=== PATIENT | male | born 1960 | race American Indian/Alaskan Native ===

== ENCOUNTER 2016-04-15 18:36 | Emergency (ER) | payer OTHER ==
[2016-04-15] MEDS ORDERED: CATAPRES ONE (18:58)
[2016-04-15] MEDS ORDERED: CATAPRES PO ONE (19:02)
[2016-04-15 19:51] VITALS: BP 173/118
--- NOTE | 2016-04-15 19:56 | Emergency Department Report ---
ED General Adult HPI - General Chief complaint: High BP Stated complaint: POSS HIGH BP Time Seen by Provider: 04/15/16 19:53 Source: patient Mode of arrival: Ambulatory Limitations: No Limitations - History of Present Illness Initial comments: Pt here for BP med refill. Unable to see PCP due to insurance issues. No complaints. -: Gradual, days(s) Radiation: non-radiation Severity scale (0 -10): 0 Consistency: constant Improves with: none Worsens with: none Associated Symptoms: denies other symptoms Treatments Prior to Arrival: none - Related Data Previous Rx's Medication Instructions Recorded Last Taken Type Bisoprolol/Hctz [Ziac 10-6.25] 1 each PO DAILY #30 tab 04/15/16 Unknown Rx Gemfibrozil [Lopid] 600 mg PO BID #60 tablet 04/15/16 Unknown Rx amLODIPine [Norvasc] 10 mg PO DAILY #30 tab 04/15/16 Unknown Rx glipiZIDE [Glucotrol] 10 mg PO BID #60 tab 04/15/16 Unknown Rx metFORMIN [Glucophage] 500 mg PO BID #60 tablet 04/15/16 Unknown Rx Allergies Allergy/AdvReac Type Severity Reaction Status Date / Time No Known Allergies Allergy Unverified 04/15/16 18:59 ED Review of Systems ROS: Stated complaint: POSS HIGH BP Other details as noted in HPI Comment: All other systems reviewed and negative Constitutional: denies: chills, fever Eyes: denies: eye pain, eye discharge, vision change ENT: denies: ear pain, throat pain Respiratory: denies: cough, shortness of breath, wheezing Cardiovascular: denies: chest pain, palpitations Endocrine: no symptoms reported Gastrointestinal: denies: abdominal pain, nausea, diarrhea Genitourinary: denies: urgency, dysuria Musculoskeletal: denies: back pain, joint swelling, arthralgia Skin: denies: rash, lesions Neurological: denies: headache, weakness, paresthesias Psychiatric: denies: anxiety, depression Hematological/Lymphatic: denies: easy bleeding, easy bruising ED Past Medical Hx - Past Medical History Hx Hypertension: Yes Hx Congestive Heart Failure: Yes Hx Diabetes: Yes - Surgical History Past Surgical History?: No - Social History Smoking Status: Former Smoker Substance Use Type: Alcohol - Medications Home Medications: Home Medications Medication Instructions Recorded Confirmed Last Taken Type Bisoprolol/Hctz [Ziac 10-6.25] 1 each PO DAILY #30 tab 04/15/16 Unknown Rx Gemfibrozil [Lopid] 600 mg PO BID #60 tablet 04/15/16 Unknown Rx amLODIPine [Norvasc] 10 mg PO DAILY #30 tab 04/15/16 Unknown Rx glipiZIDE [Glucotrol] 10 mg PO BID #60 tab 04/15/16 Unknown Rx metFORMIN [Glucophage] 500 mg PO BID #60 tablet 04/15/16 Unknown Rx ED Physical Exam - General Limitations: No Limitations General appearance: alert, in no apparent distress - Head Head exam: Present: atraumatic, normocephalic - Eye Eye exam: Present: normal appearance, PERRL, EOMI Pupils: Present: normal accommodation - ENT ENT exam: Present: mucous membranes moist - Neck Neck exam: Present: normal inspection - Respiratory Respiratory exam: Present: normal lung sounds bilaterally. Absent: respiratory distress - Cardiovascular Cardiovascular Exam: Present: regular rate, normal rhythm. Absent: systolic murmur, diastolic murmur, rubs, gallop - GI/Abdominal GI/Abdominal exam: Present: soft, normal bowel sounds - Rectal Rectal exam: Present: deferred - Extremities Exam Extremities exam: Present: normal inspection - Back Exam Back exam: Present: normal inspection - Neurological Exam Neurological exam: Present: alert, oriented X3, CN II-XII intact, reflexes normal. Absent: motor sensory deficit - Psychiatric Psychiatric exam: Present: normal affect, normal mood - Skin Skin exam: Present: warm, dry, intact, normal color. Absent: rash ED Course Vital Signs 04/15/16 04/15/16 04/15/16 18:48 19:03 19:49 Temperature 98.4 F 98.0 F Pulse Rate 97 H 98 H 100 H Respiratory 18 Rate Blood Pressure 191/122 198/123 Blood Pressure 173/118 [Right] O2 Sat by Pulse 97 97 Oximetry - Reevaluation(s) Reevaluation #1: 04/15/16 19:55 Trending down 167/115. Will recheck in 30 min. Reevaluation #2: 04/15/16 21:03 BP, GLC trending down. NAD, stable for d/c. ED Medical Decision Making - Medical Decision Making BP down. Glc trending down. Asymptomatic. Will refill until he can see PCP. - Differential Diagnosis htn urgency, med refill, hyperglycemia Critical care attestation.: If time is entered above; I have spent that time in minutes in the direct care of this critically ill patient, excluding procedure time. ED Disposition Clinical Impression: Hypertensive urgency Hyperglycemia due to type 2 diabetes mellitus Qualifiers: Diabetes mellitus nursing home insulin use: unspecified intermediate manager insulin use status Qualified Code(s): E11.65 - Type 2 diabetes mellitus with hyperglycemia Disposition: DISCHARGED TO HOME OR SELFCARE Is pt being admited?: No Condition: Stable Instructions: Diabetes Mellitus Type 2 in Adults (ED), Hypertension (ED) Prescriptions: amLODIPine [Norvasc] 10 mg PO DAILY #30 tab Bisoprolol/Hctz [Ziac 10-6.25] 1 each PO DAILY #30 tab Gemfibrozil [Lopid] 600 mg PO BID #60 tablet glipiZIDE [Glucotrol] 10 mg PO BID #60 tab metFORMIN [Glucophage] 500 mg PO BID #60 tablet Referrals: PRIMARY CAREMD [Primary Care Provider] - 3-5 Days CHRISTINE FERNANDEZ MD [Staff Physician] - 3-5 Days Time of Disposition: 21:04
== END 2016-04-15 21:33 | disposition home or self-care (01) ==
LOC: ED 18:36
DX: I10 Essential (primary) hypertension (principal); E11.65 Type 2 diabetes mellitus with hyperglycemia; I50.9 Heart failure, unspecified; Z87.891 Personal history of nicotine dependence
CPT/HCPCS: 82962; 96372; 99283; J1815

== ENCOUNTER 2017-11-12 15:53 | Emergency (ER) | payer OTHER ==
--- NOTE | 2017-11-12 20:11 | XRay Report ---
FINAL REPORT PROCEDURE: XR KNEE 3V RT TECHNIQUE: RIGHT knee radiographs, AP, lateral and sunrise views. CPT 16404 HISTORY: pain, edema COMPARISON: No prior studies are available for comparison. FINDINGS: Fracture (s) and/or Dislocation(s): None . Alignment: Normal . Joint space(s): Normal . Soft tissues: There is prepatellar soft tissue swelling. There are vascular calcifications.. Bone mineralization: Normal . Foreign bodies: None . IMPRESSION: There is no acute bony abnormality. There is no joint effusion. There is mild prepatellar soft tissue swelling..
[2017-11-12] MEDS ORDERED: MOTRIN PO ONE (22:47)
--- NOTE | 2017-11-13 00:01 | Emergency Department Report ---
Upper Extremity - [facility] Chief Complaint: Extremity Problem,Nontraumatic Stated Complaint: RT KNEE PAIN ED Review of Systems ROS: Stated complaint: RT KNEE PAIN Other details as noted in HPI ED Past Medical Hx - Past Medical History Hx Hypertension: Yes Hx Congestive Heart Failure: Yes Hx Diabetes: Yes - Surgical History Past Surgical History?: No - Social History Smoking Status: Never Smoker Substance Use Type: None - Medications Home Medications: Home Medications Medication Instructions Recorded Confirmed Last Taken Type Bisoprolol/Hctz [Ziac 10-6.25] 1 each PO DAILY #30 tab 04/15/16 Unknown Rx Gemfibrozil [Lopid] 600 mg PO BID #60 tablet 04/15/16 Unknown Rx amLODIPine [Norvasc] 10 mg PO DAILY #30 tab 04/15/16 Unknown Rx glipiZIDE [Glucotrol] 10 mg PO BID #60 tab 04/15/16 Unknown Rx metFORMIN [Glucophage] 500 mg PO BID #60 tablet 04/15/16 Unknown Rx Upper Extremity Exam - Exam General: Vital signs noted. No distress. Alert and acting appropriately. ED Course Vital Signs 11/12/17 16:06 Temperature 98.6 F Pulse Rate 107 H Respiratory 16 Rate Blood Pressure 166/97 O2 Sat by Pulse 95 Oximetry Critical care attestation.: If time is entered above; I have spent that time in minutes in the direct care of this critically ill patient, excluding procedure time. ED Disposition Condition: Stable Referrals: PRIMARY CARE, [Primary Care Provider] - 3-5 Days
--- NOTE | 2017-11-13 00:02 | Emergency Department Report ---
ED Lower Extremity HPI - General Chief Complaint: Extremity Problem,Nontraumatic Stated Complaint: RT KNEE PAIN Source: patient Mode of arrival: Ambulatory Limitations: No Limitations - History of Present Illness Initial Comments: 57-year-old -[place] male with a past medical history of hypertension and diabetes comes in complaining of pain to the right knee. Patient denies any trauma. 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 Patient presents to the triage and fast track using a walker that he had borrowed from his [id number]. Patient reports that he took Tylenol which has not helped with this pain. Patient reports that the Motrin 600 mg given from triage has helped some. Patient has recently received insurance yet has not followed up with a primary care provider. It was noted that his blood pressure in triage is 166/97. With the repeat of 189/109. She denies any known drug allergies. Reports is been taking his amlodipine that saw he's had. Injury: Knee: Right Type of Injury: unknown Severity: severe Severity scale (0 -10): 8 Improves With: NSAID Worsens With: weight bearing, movement, palpation Associated Symptoms: able to partially bear weight Treatments Prior to Arrival: cold therapy, other (acetaminophen) - Related Data Previous Rx's Medication Instructions Recorded Last Taken Type Bisoprolol/Hctz [Ziac 10-6.25] 1 each PO DAILY #30 tab 04/15/16 Unknown Rx Gemfibrozil [Lopid] 600 mg PO BID #60 tablet 04/15/16 Unknown Rx glipiZIDE [Glucotrol] 10 mg PO BID #60 tab 04/15/16 Unknown Rx metFORMIN [Glucophage] 500 mg PO BID #60 tablet 04/15/16 Unknown Rx Ibuprofen [Motrin 600 MG tab] 600 mg PO Q8H 10 Days #30 tablet 11/13/17 Unknown Rx Lisinopril [Zestril TAB] 20 mg PO QDAY #30 tablet 11/13/17 Unknown Rx amLODIPine [Norvasc] 10 mg PO DAILY #30 tab 11/13/17 Unknown Rx Allergies Allergy/AdvReac Type Severity Reaction Status Date / Time No Known Allergies Allergy Unverified 04/15/16 18:59 ED Review of Systems ROS: Stated complaint: RT KNEE PAIN Other details as noted in HPI Comment: All other systems reviewed and negative Constitutional: denies: chills, fever Eyes: denies: eye pain, eye discharge, vision change Musculoskeletal: arthralgia (right knee) ED Past Medical Hx - Past Medical History Hx Hypertension: Yes Hx Congestive Heart Failure: Yes Hx Diabetes: Yes - Surgical History Past Surgical History?: No - Social History Smoking Status: Never Smoker Substance Use Type: None - Medications Home Medications: Home Medications Medication Instructions Recorded Confirmed Last Taken Type Bisoprolol/Hctz [Ziac 10-6.25] 1 each PO DAILY #30 tab 04/15/16 Unknown Rx Gemfibrozil [Lopid] 600 mg PO BID #60 tablet 04/15/16 Unknown Rx glipiZIDE [Glucotrol] 10 mg PO BID #60 tab 04/15/16 Unknown Rx metFORMIN [Glucophage] 500 mg PO BID #60 tablet 04/15/16 Unknown Rx Ibuprofen [Motrin 600 MG tab] 600 mg PO Q8H 10 Days #30 tablet 11/13/17 Unknown Rx Lisinopril [Zestril TAB] 20 mg PO QDAY #30 tablet 11/13/17 Unknown Rx amLODIPine [Norvasc] 10 mg PO DAILY #30 tab 11/13/17 Unknown Rx ED Physical Exam - General Limitations: No Limitations General appearance: alert, in no apparent distress - Head Head exam: Present: atraumatic, normocephalic - ENT ENT exam: Present: mucous membranes moist - Respiratory Respiratory exam: Present: normal lung sounds bilaterally. Absent: respiratory distress - Cardiovascular Cardiovascular Exam: Present: regular rate, normal rhythm. Absent: systolic murmur, diastolic murmur, rubs, gallop - Expanded Lower Extremity Exam Right Hip exam: Present: full ROM. Absent: tenderness, swelling Knee exam: Present: tenderness, full knee extension. Absent: swelling, abrasion , laceration, deformity Lower Leg exam: Present: normal inspection, full ROM. Absent: tenderness, swelling Ankle exam: Present: normal inspection. Absent: full ROM, tenderness, swelling ED Course Vital Signs 11/12/17 11/13/17 16:06 00:23 Temperature 98.6 F Pulse Rate 107 H 98 H Respiratory 16 18 Rate Blood Pressure 166/97 Blood Pressure 189/109 [Left] O2 Sat by Pulse 95 100 Oximetry ED Lower Extremity MDM - Radiology Data Radiology results: report reviewed INAL REPORT PROCEDURE: XR KNEE 3V RT TECHNIQUE: RIGHT knee radiographs, AP, lateral and sunrise views. CPT 45651 HISTORY: pain, edema COMPARISON: No prior studies are available for comparison. FINDINGS: Fracture (s) and/or Dislocation(s): None . Alignment: Normal . Joint space(s): Normal . Soft tissues: There is prepatellar soft tissue swelling. There are vascular calcifications.. Bone mineralization: Normal . Foreign bodies: None . IMPRESSION: There is no acute bony abnormality. There is no joint effusion. There is mild prepatellar soft tissue swelling.. Transcribed By: CO Dictated By: CHUY MEDINA MD Electronically Authenticated By: CHUY MEDINA MD Signed Date/Time: 11/12/172009 DD/ 09 TD/TT: 11/12/172009 - Medical Decision Making Patient has been evaluated by this provider fast track. X-ray of the knee shows normal examination. Ibuprofen 600 mg given to patient which she reports has helped. Discussed the patient that his blood pressures elevated I will start him on lisinopril since patient's a diabetic with hypertension started by 20 mg daily and amlodipine 10 mg daily a referral to a primary care provider as well as an orthopedic provider. Patient denies any chest pain shortness of breathing no headache no change of vision of dizziness. Patient verbalizes understanding. Critical care attestation.: If time is entered above; I have spent that time in minutes in the direct care of this critically ill patient, excluding procedure time. ED Disposition Clinical Impression: Pain in lateral portion of right knee HTN (hypertension) Qualifiers: Hypertension type: unspecified Qualified Code(s): I10 - Essential (primary) hypertension Disposition: - TO HOME OR SELFCARE Is pt being admited?: No Does the pt Need Aspirin: No Condition: Stable Instructions: Hypertension (ED) Additional Instructions: Please take blood pressure medicine daily. Please take pain medication as needed. Is very important for her to follow up with the primary care provider as well as an orthopedic if he or knee continues to give her trouble. Prescriptions: amLODIPine [Norvasc] 10 mg PO DAILY #30 tab Ibuprofen [Motrin 600 MG tab] 600 mg PO Q8H 10 Days #30 tablet Lisinopril [Zestril TAB] 20 mg PO QDAY #30 tablet Referrals: PRIMARY CARE, [Primary Care Provider] - 3-5 Days KYLEIGH DAI III, JOURDAN-ORTEGA [Referring] - 3-5 Days DANIEL GUERRERO MD [Staff Physician] - 3-5 Days MALAIKA KAMARA MD [Staff Physician] - 3-5 Days Forms: Work/School Release Form(ED)
[2017-11-13 00:24] VITALS: BP 189/109
== END 2017-11-13 00:53 | disposition home or self-care (01) ==
LOC: ED 15:53
DX: M25.561 Pain in right knee (principal); I11.0 Hypertensive heart disease with heart failure; I50.9 Heart failure, unspecified
CPT/HCPCS: 99283